=== PATIENT | female | born 1965 | race Two or more races ===

== ENCOUNTER 2019-10-30 10:16 | Emergency (ER) | payer SELFPAY ==
[~2019-10-30] VITALS: Ht 160 cm; Wt 72.0 kg
[~2019-10-30 10:16] MED LIST: ATOR40TA PO; LISI-170 PO; OMEP-110 PO; VERA40TA PO
[2019-10-30 11:30] LABS: MICROSCOPIC AUTO
[2019-10-30 11:34] LABS: CULTURE INDICATED? YES
[2019-10-30 11:37] VITALS: BP 112/69
== END 2019-10-30 12:24 | disposition home or self-care (01) ==
LOC: ED 12:00
DX: N30.01 Acute cystitis with hematuria (principal); K21.9 Gastro-esophageal reflux disease without esophagitis; I10 Essential (primary) hypertension
CPT/HCPCS: 81001; 87077; 87086; 87186; 99283

== ENCOUNTER 2021-04-16 16:13 | Emergency (ER) | payer SELFPAY ==
[~2021-04-16] VITALS: Ht 157.5 cm; Wt 68.9 kg
[2021-04-16 16:21] VITALS: BP 166/70
--- NOTE | 2021-04-16 20:21 | NUR ---
investigation clerk: Called for pt. Pt not in lobby at this time.
--- NOTE | 2021-04-16 20:33 | NUR ---
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 Pt not in lobby at this time for second attempt.
--- NOTE | 2021-04-16 20:47 | NUR ---
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 Patient not in lobby. Lobby searched.
== END 2021-04-16 20:51 | disposition left against medical advice (07) ==
LOC: ED 16:30
DX: R19.7 Diarrhea, unspecified (principal); Z53.21 Procedure and treatment not carried out due to patient leaving prior to being seen by health care provider